=== PATIENT | female | born 1990 | race Hispanic/Latino ===

== ENCOUNTER 2022-06-20 09:39 | Outpatient (CLI) | payer OTHER | END 2022-06-20 09:40 | disposition home or self-care (01) | LOC: CSHLAB 09:39 | PROVIDERS: ATTEND Family Medicine | DX: Z20.822 Contact with and (suspected) exposure to COVID-19 (principal) | CPT/HCPCS: 87811 ==

== ENCOUNTER 2022-06-20 12:33 | Inpatient (IN) | payer OTHER ==
[2022-06-22] MEDS ORDERED: Bupivacaine HCl 0.5%/Epinephrine 1:200,000/PF 30 ml Vial ONE (07:00)
[2022-06-22] MEDS ORDERED: Bupivacaine/Epinephrine 0.25% 30 ML VIAL ONE (07:00)
[2022-06-22] MEDS ORDERED: Penicillin G Potassium 5 MILL.UNITS VIAL ONE (07:55)
[2022-06-22] MEDS ORDERED: Lidocaine 1% (PF) 30 ML VIAL SC PRN (08:19)
[2022-06-22] MEDS ORDERED: HYDROcodone/Acetaminophen 5/325 mg Tablet PO PRN ×2 (08:19→23:05)
[2022-06-22] MEDS ORDERED: Diphenoxylate HCl/Atropine Tablet PO PRN (08:19)
[2022-06-22] MEDS ORDERED: Methylergonovine 0.2 MG/ML VIAL IM PRN (08:19)
[2022-06-22] MEDS ORDERED: hydrALAZINE 20 MG/ML VIAL SLOW IVP PRN ×2 (08:19→23:05)
[2022-06-22] MEDS ORDERED: Promethazine HCl 25 MG/ML VIAL IM PRN ×3 (08:19→23:05)
[2022-06-22] MEDS ORDERED: Ondansetron PF 4 MG/2 ML Vial IVP PRN ×3 (08:19→23:05)
[2022-06-22] MEDS ORDERED: Misoprostol 200 MCG TAB PR PRN (08:19)
[2022-06-22] MEDS ORDERED: Carboprost 250 MCG/ML AMP IM PRN (08:19)
[2022-06-22] MEDS ORDERED: Butorphanol Tartrate 1 MG/ML VIAL SLOW IVP PRN (08:19)
[2022-06-22] MEDS ORDERED: Ibuprofen 800 MG TAB PO PRN (08:19)
[2022-06-22] MEDS ORDERED: Acetaminophen 500 MG TAB PO PRN (08:19)
[2022-06-22] MEDS ORDERED: Penicillin G Potassium 5 MILL.UNITS in Sodium Chloride 0.9% 100 ML IVPB SCH (08:30)
[2022-06-22] MEDS ORDERED: NS w/ Oxytocin 30 units 500 ML IV SCH ×2 (08:30)
[2022-06-22] MEDS ORDERED: Lactated Ringer's 1,000 ML IV SCH (08:30)
[2022-06-22 08:47] LABS: Hemoglobin 9.9 g/dL (12.0-15.5); Mean Corpuscular HGB CONC 32.2 g/dL (32.0-36.0); Mean Corpuscular Hemoglobin 27.1 pg (27.0-33.0); Mean Corpuscular Volume 84.1 fl (81.6-98.3); Mean Platelet Volume 11.2 fl (7.4-10.4); Platelet Count 226 10x3/uL (150-450); Red Blood Cell (RBC) Count 3.65 10x6/uL (3.90-5.03); White Blood Cell (WBC) Count 7.2 10x3/uL (3.5-10.5)
[2022-06-22 09:05] VITALS: BMI 36.0
[2022-06-22 09:15] LABS: HBSAg Index 0.24 S/CO (0-0.99); Hep B Surf Ag Non-Reactive S/CO (NonReactive); Syphilis Antibody Nonreactive (Nonreactive); Syphilis Antibody Index 0.04 S/CO (<1.00 Non-Reactive)
[2022-06-22] MEDS: Penicillin G 2.5 MILL.units 2.5 MILL.UNITS in Premix Bag 1 BAG IVPB SCH ×2 (12:41→16:58)
[2022-06-22] MEDS ORDERED: Fentanyl 2 mcg/Bup 0.1% Cadd 100 ML ONE (15:59)
[2022-06-22] MEDS ORDERED: Lactated Ringer's 500 ML IV PRN (16:35)
[2022-06-22] MEDS ORDERED: diphenhydrAMINE 50 MG/ML VIAL IVP PRN (16:35)
[2022-06-22] MEDS ORDERED: Naloxone HCl 0.4 mg/ml Vial IVP PRN ×2 (16:35)
[2022-06-22] MEDS ORDERED: Moisturizing Cream (Eucerin) 113 GM JAR TOP PRN (16:35)
[2022-06-22] MEDS ORDERED: ePHEDrine Sulfate 50 MG/10 ML VIAL SLOW IVP PRN (16:35)
[2022-06-22] MEDS ORDERED: Acetaminophen 325 MG TAB PO PRN (16:35)
[2022-06-22] MEDS ORDERED: Fentanyl 2 mcg/Bupivacaine 0.1% Cassette 100 ML EPIDURAL SCH (16:45)
[2022-06-22] MEDS ORDERED: Communication Order-Pharmacy FS SCH (16:45)
[2022-06-22] MEDS ORDERED: Lanolin Ointment 7 GM TUBE TOP PRN (23:05)
[2022-06-22] MEDS ORDERED: diphenhydrAMINE 25 MG CAP PO PRN (23:05)
[2022-06-22] MEDS ORDERED: Milk Of Magnesia 30 ML UDCUP PO PRN (23:05)
[2022-06-22] MEDS ORDERED: Boostrix 0.5 ML (Tdap) VIAL (>/=7 yrs of age) IM ONE (23:05)
[2022-06-22] MEDS ORDERED: Bisacodyl 10 MG SUPP PR PRN (23:05)
[2022-06-22] MEDS ORDERED: Benzocaine-Menthol 82.5 ML CAN TOP PRN (23:05)
[2022-06-22] MEDS ORDERED: Docusate 100 MG CAP PO SCH (23:15)
[2022-06-22] MEDS ORDERED: Ibuprofen 800 MG TAB PO SCH (23:15)
[2022-06-23] MEDS: Ibuprofen 800 MG TAB PO SCH ×3 (04:25→21:23)
[2022-06-23] MEDS: Prenatal Vitamin 1 TAB PO SCH (08:48)
[2022-06-23] MEDS: Docusate 100 MG CAP PO SCH ×2 (08:48→21:24)
[2022-06-23] MEDS: Ferrous Sulfate 325 MG TAB PO SCH ×2 (08:48→17:28)
[2022-06-23] MEDS: HYDROcodone/Acetaminophen 5/325 mg Tablet PO PRN (17:32)
[2022-06-24] MEDS: Ibuprofen 800 MG TAB PO SCH (05:41)
[2022-06-24 07:48] VITALS: BP 110/54; TEMP 98.2
[2022-06-24] MEDS: Docusate 100 MG CAP PO SCH (09:35)
[2022-06-24] MEDS: Prenatal Vitamin 1 TAB PO SCH (09:35)
[2022-06-24] MEDS: HYDROcodone/Acetaminophen 5/325 mg Tablet PO PRN (09:35)
[2022-06-24] MEDS: Ferrous Sulfate 325 MG TAB PO SCH (09:35)
== END 2022-06-24 12:25 | disposition home or self-care (01) | DRG 807 ==
LOC: CSHLD 06-22 06:28 → CSHPP 06-22 22:57
PROVIDERS: ADMIT Family Medicine; ATTEND Family Medicine
PROC: 10E0XZZ Delivery of Products of Conception, External Approach (ICD-10-PCS; principal; 2022-06-22)
PROC: 0W8NXZZ Division of Female Perineum, External Approach (ICD-10-PCS; 2022-06-22)
PROC: 3E0334Z Introduction of Serum, Toxoid and Vaccine into Peripheral Vein, Percutaneous Approach (ICD-10-PCS; 2022-06-22)
DX: O99.824 Streptococcus B carrier state complicating childbirth (principal); Z37.0 Single live birth; O26.893 Other specified pregnancy related conditions, third trimester; Z67.11 Type A blood, Rh negative; Z3A.39 39 weeks gestation of pregnancy; O76 Abnormality in fetal heart rate and rhythm complicating labor and delivery; O69.81X0 Labor and delivery complicated by cord around neck, without compression, not applicable or unspecified
CPT/HCPCS: 51701; 51702; 81001; 85027; 85461; 86780; 86850; 86900; 86901; 87340; 90384; 96372; 99282; J2540; J2590; J3490; J7120

== ENCOUNTER 2022-06-21 13:42 | Day surgery (SDC) | payer OTHER ==
[2022-06-21 14:35] VITALS: BMI 36.0
[2022-06-21] MEDS ORDERED: hydrALAZINE 20 MG/ML VIAL SLOW IVP PRN (15:31)
[2022-06-21 15:59] LABS: Bilirubin Negative (Negative); Blood, Urine Negative (Negative); Clarity Clear (Clear); Glucose, Urine (Dipstick) Negative (Negative); Ketone, Urine 40 mg/dL (Negative); Leukocyte Negative (Negative); Nitrite Negative (Negative); Protein, Urine (Dipstick) Negative (Neg-Trace); Specific Gravity, Urine 1.025 (1.005-1.030); Urobilinogen 0.2 mg/dL (Less than 2)
[2022-06-21 16:01] LABS: Urine Culture Reflex No No
[2022-06-21 16:15] LABS: WBC/HPF 0-3 HPF (0-3)
[2022-06-21 16:16] LABS: Bacteria/HPF 1+ HPF (None Seen)
== END 2022-06-21 16:55 | disposition home or self-care (01) ==
LOC: CSHLD/OP 13:42
PROVIDERS: ATTEND Family Medicine
DX: O47.1 False labor at or after 37 completed weeks of gestation (principal); O26.893 Other specified pregnancy related conditions, third trimester; R10.9 Unspecified abdominal pain; R30.0 Dysuria; M54.50 Low back pain, unspecified; Z3A.39 39 weeks gestation of pregnancy; O99.613 Diseases of the digestive system complicating pregnancy, third trimester; K21.9 Gastro-esophageal reflux disease without esophagitis; O99.213 Obesity complicating pregnancy, third trimester; E66.9 Obesity, unspecified
CPT/HCPCS: 51701; 81001; 99282